=== PATIENT | female | born 2000 | race Caucasian/White ===

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

== ENCOUNTER 2020-10-06 20:45 | Emergency (ER) | payer MEDICAID ==
--- NOTE | 2020-10-06 22:40 | EDM.PDOC ---
ED HPI GENERAL MEDICAL PROBLEM - General Chief Complaint: Respiratory Problem Stated Complaint: TROUBLES BREATHING/CONFUSION/NAUSEA Time Seen by Provider: 10/06/20 21:11 Source of Information: Reports: Patient, RN Notes Reviewed - History of Present Illness INITIAL COMMENTS - FREE TEXT/NARRATIVE: Onset of cough, anisha., chills, Valladares myalgias, fatigue about 4 to 5 days ago. Sx getting worse. - Related Data Allergies Allergy/AdvReac Type Severity Reaction Status Date / Time tomato Allergy Other Verified 10/06/20 21:00 vinegar Allergy Other Uncoded 10/06/20 21:00 Home Meds: Home Meds Escitalopram [Lexapro] 20 mg PO DAILY 02/07/17 [History] LORazepam [Ativan] 0.5 mg PO ASDIRECTED PRN 02/07/17 [History] Past Medical History - Past Health History Medical/Surgical History: Denies Medical/Surgical History HEENT History: Reports: Impaired Vision Other HEENT History: wears glasses Cardiovascular History: Reports: None Respiratory History: Reports: None Gastrointestinal History: Reports: Chronic Constipation, GERD, GI Bleed, Hemorrhoids, PUD, Other (See Below) Other Gastrointestinal History: hx of reflux and vomiting from different foods and intolerance to most medications Genitourinary History: Reports: None 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 Musculoskeletal History: Reports: None Neurological History: Reports: None Psychiatric History: Reports: Anxiety, Depression, Panic Attack Endocrine/Metabolic History: Reports: None Hematologic History: Reports: None Immunologic History: Reports: None Oncologic (Cancer) History: Reports: None Dermatologic History: Reports: Eczema, Psoriasis - Infectious Disease History Infectious Disease History: Reports: None - Past Surgical History HEENT Surgical History: Reports: Adenoidectomy, Tonsillectomy, Other (See Below) Other HEENT Surgeries/Procedures: Tongue clipping GI Surgical History: Reports: EGD Other GI Surgeries/Procedures: endoscopy 01/2018 Social & Family History - Family History Family Medical History: No Pertinent Family History Endocrine/Metabolic: Reports: Diabetes, type II Oncologic: Reports: Brain, Cervix, Skin - Tobacco Use Tobacco Use Status *Q: Never Tobacco User Second Hand Smoke Exposure: Yes - Caffeine Use Caffeine Use: Reports: Soda, Tea - Recreational Drug Use Recreational Drug Use: No - Living Situation & Occupation Living situation: Reports: Single, with Family Occupation: Unemployed ED ROS GENERAL - Review of Systems Review Of Systems: See Below Constitutional: Reports: Chills. Denies: Fever HEENT: Reports: Rhinitis, Throat Pain Respiratory: Reports: Shortness of Breath, Cough Endocrine: Reports: Fatigue GI/Abdominal: Denies: Diarrhea, Nausea, Vomiting Musculoskeletal: Reports: Other (myalgias) Skin: Denies: Rash Neurological: Reports: Dizziness, Headache ED EXAM, GENERAL - Physical Exam Exam: See Below General Appearance: Alert, No Apparent Distress Throat/Mouth: Normal Inspection Head: Atraumatic Neck: Supple Respiratory/Chest: No Respiratory Distress, Lungs Clear, Normal Breath Sounds. No: Rhonchi, Wheezing Cardiovascular: Regular Rate, Rhythm GI/Abdominal: Non-Tender Neurological: Alert, Oriented, No Motor/Sensory Deficits Skin Exam: Warm, Dry, Normal Color Course - Vital Signs Last Recorded V/S: Last Vital Signs Temp 98.0 F 10/06/20 22:45 Pulse 86 10/06/20 22:45 Resp 18 10/06/20 22:45 BP 111/66 10/06/20 22:45 Pulse Ox 99 10/06/20 22:45 - Orders/Labs/Meds Orders: Active Orders 24 hr Category Date Time Status Chest 1V Frontal [CR] Stat Exams 10/06/20 21:18 Taken Labs: Laboratory Tests 10/06/20 Range/Units 21:16 SARS-CoV-2 RNA (KATY) Negative (NEGATIVE) - Re-Assessments/Exams Free Text/Narrative Re-Assessment/Exam: 10/06/20 23:54 CXR nl, covid neg Departure - Departure Time of Disposition: 22:38 Disposition: Home, Self-Care 01 Condition: Fair Clinical Impression: Viral URI with cough - Discharge Information Instructions: Viral Respiratory Infection, [id number] Referrals: Jesusita Harry PA-C [Primary Care Provider] - Forms: ED Department Discharge Additional Instructions: Rest, consider retest for covid if not much better within 2 to 3 days as expected. Follow up clinic as needed. Return to ED as needed. Sepsis Event Note (ED) - Evaluation Sepsis Screening Result: No Definite Risk - Focused Exam Vital Signs: Vital Signs Temp Pulse Resp BP Pulse Ox 10/06/20 22:45 98.0 F 86 18 111/66 99 10/06/20 21:00 99.1 F 85 16 114/73 100 - My Orders Last 24 Hours: My Active Orders 10/06/20 21:18 Chest 1V Frontal [CR] Stat - Assessment/Plan Last 24 Hours: My Active Orders 10/06/20 21:18 Chest 1V Frontal [CR] Stat
--- NOTE | 2020-10-07 07:25 | CR ---
Chest: Frontal view of the chest was obtained. Comparison: No prior chest imaging is available. Heart size and mediastinum are normal. Lungs are clear with no acute parenchymal change. Minimal scoliosis is noted. No acute osseous abnormality is seen. Impression: 1. Nothing acute is seen on frontal chest x-ray. Diagnostic code #1
== END 2020-10-06 22:45 | disposition home or self-care (01) ==
LOC: JD.ED 20:45
DX: J06.9 Acute upper respiratory infection, unspecified (principal); Z91.018 Allergy to other foods; Z77.22 Contact with and (suspected) exposure to environmental tobacco smoke (acute) (chronic); Z20.822 Contact with and (suspected) exposure to COVID-19
CPT/HCPCS: 71045; 71045-26; 99282; 99283-25; U0002

== ENCOUNTER 2020-12-09 13:48 | Emergency (ER) | payer MEDICAID, OTHER ==
[2020-12-09] MEDS ORDERED: Ondansetron 4 MG/2 ML SDV IVPUSH ONE (15:10)
[2020-12-09] MEDS ORDERED: Sodium Chloride 0.9% 10 ML Syringe FLUSH PRN (15:10)
[2020-12-09] MEDS ORDERED: Sodium Chloride 0.9% 1,000 ML IV SCH (15:15)
--- NOTE | 2020-12-09 15:18 | EDM.PDOC ---
ED HPI GENERAL MEDICAL PROBLEM - General Chief Complaint: Abdominal Pain Stated Complaint: GALLBLADDER\\DEHYDRATED? Time Seen by Provider: 12/09/20 14:56 Source of Information: Reports: Patient, RN Notes Reviewed History Limitations: Reports: No Limitations - History of Present Illness INITIAL COMMENTS - FREE TEXT/NARRATIVE: Patient is a 20-year-old female who presents to the ER for the evaluation of her upper abdominal discomfort with associated nausea and diarrhea. Patient notes that her family has an extensive history of bladder issues. States that her mother has had gallbladder issues, her grandmother has had gallbladder issues, and her uncle has had gallbladder issues. Patient states that since Tuesday, she has not been able to keep anything down for food or fluids much at all. She states that if she does keep food down, then she has diarrhea shortly after she eats anything. States she has not really been able to eat any sort of foods, fatty, sugary, otherwise without a lot of GI discomfort. They state that there was an area of "swelling" to the patient's mid abdomen, in which she took a lukewarm bath, and this seemed to help relieve the swelling in her abdomen. Patient is denying any fevers or chills, cough or shortness of breath. She has been try to take some medications for the pain management for her stomach however she is not been able to keep anything down due to the vomiting. Primary care provider is Jesusita Harry. Upper Abdomen Pain Score (Numeric/FACES): 10 - Related Data Allergies Allergy/AdvReac Type Severity Reaction Status Date / Time tomato Allergy Unknown Other Verified 12/09/20 16:05 acetic acid Allergy Other Verified 12/09/20 16:05 Home Meds: Home Meds Escitalopram [Lexapro] 20 mg PO DAILY 02/07/17 [History] LORazepam [Ativan] 0.5 mg PO ASDIRECTED PRN 02/07/17 [History] Ondansetron [Zofran ODT] 4 mg PO Q8H PRN #15 tab.dis 12/09/20 [Rx] Past Medical History HEENT History: Reports: Impaired Vision Other HEENT History: wears glasses Gastrointestinal History: Reports: Chronic Constipation, GERD, GI Bleed, Hemorrhoids, PUD, Other (See Below) Other Gastrointestinal History: hx of reflux and vomiting from different foods and intolerance to most medications;ulcers Psychiatric History: Reports: Anxiety, Depression, Panic Attack Dermatologic History: Reports: Eczema, Psoriasis - Past Surgical History HEENT Surgical History: Reports: Adenoidectomy, Tonsillectomy, Other (See Below) Other HEENT Surgeries/Procedures: Tongue clipping GI Surgical History: Reports: EGD Other GI Surgeries/Procedures: endoscopy 01/2018 Social & Family History - Family History Family Medical History: No Pertinent Family History Endocrine/Metabolic: Reports: Diabetes, type II Oncologic: Reports: Brain, Cervix, Skin - Tobacco Use Tobacco Use Status *Q: Never Tobacco User - Caffeine Use Caffeine Use: Reports: Soda, Tea - Recreational Drug Use Recreational Drug Use: No - Living Situation & Occupation Living situation: Reports: Single, with Family Occupation: Unemployed ED ROS GENERAL - Review of Systems Review Of Systems: Comprehensive ROS is negative, except as noted in HPI. ED EXAM, GI/ABD - Physical Exam Exam: See Below Exam Limited By: No Limitations General Appearance: Alert, WD/WN, No Apparent Distress Respiratory/Chest: No Respiratory Distress, Lungs Clear, Normal Breath Sounds, No Accessory Muscle Use, Chest Non-Tender Cardiovascular: Normal Peripheral Pulses, Regular Rate, Rhythm, No Edema GI/Abdominal Exam: Normal Bowel Sounds, Soft, No Distention, Tender (epigastrium and into RUQ, Mendez's sign positive.) Extremities: Normal Inspection, Normal Range of Motion, Normal Capillary Refill Neurological: Alert, Oriented, Normal Cognition, No Motor/Sensory Deficits Psychiatric: Normal Affect, Normal Mood Skin Exam: Warm, Dry, Intact, Normal Color, No Rash Course - Vital Signs Last Recorded V/S: Last Vital Signs Temp 100.4 F 12/09/20 14:31 Pulse 74 12/09/20 14:31 Resp 20 12/09/20 14:31 BP 111/66 12/09/20 14:31 Pulse Ox 99 12/09/20 14:31 - Orders/Labs/Meds Orders: Active Orders 24 hr Category Date Time Status Peripheral IV Care [RC] . DIRECTED Care 12/09/20 15:12 Ordered Abdomen Ltd [US] Stat Exams 12/09/20 15:10 Ordered Abdomen Pelvis w Cont [CT] Stat Exams 12/09/20 15:10 Ordered Sodium Chloride 0.9% [Normal Saline] 1,000 ml Med 12/09/20 15:15 Ordered IV ASDIRECTED Sodium Chloride 0.9% [Saline Flush] Med 12/09/20 15:10 Ordered 10 ml FLUSH ASDIRECTED PRN Peripheral IV Insertion Adult [OM.PC] Stat Oth 12/09/20 15:10 Ordered Medication Orders Sodium Chloride (Normal Saline) 1,000 mls @ 999 mls/hr IV ASDIRECTED ADAMA Last Admin: 12/09/20 15:34 Dose: 999 mls/hr Documented by: ANITA Sodium Chloride (Sodium Chloride 0.9% 10 Ml Syringe) 10 ml FLUSH ASDIRECTED PRN PRN Reason: Keep Vein Open Last Admin: 12/09/20 15:34 Dose: 10 ml Documented by: ANITA Labs: Laboratory Tests 12/09/20 12/09/20 12/09/20 Range/Units 14:55 15:00 15:13 WBC (3.98-10.04) K/mm3 RBC (3.98-5.22) M/mm3 Hgb (11.2-15.7) gm/dl Hct (34.1-44.9) % MCV (79.4-94.8) fl MCH (25.6-32.2) pg MCHC (32.2-35.5) g/dl RDW Std Deviation (36.4-46.3) fL Plt Count (182-369) K/mm3 MPV (9.4-12.3) fl Neut % (Auto) (34.0-71.1) % Lymph % (Auto) (19.3-51.7) % [place] % (Auto) (4.7-12.5) % Eos % (Auto) (0.7-5.8) Baso % (Auto) (0.1-1.2) % Neut # (Auto) (1.56-6.13) K/mm3 Lymph # (Auto) (1.18-3.74) K/mm3 [place] # (Auto) (0.24-0.36) K/mm3 Eos # (Auto) (0.04-0.36) K/mm3 Baso # (Auto) (0.01-0.08) K/mm3 Sodium (136-145) mEq/L Potassium (3.5-5.1) mEq/L Chloride (98-107) mEq/L Carbon Dioxide (21-32) mEq/L Anion Gap (5-15) BUN (7-18) mg/dL Creatinine (0.55-1.02) mg/dL Est Cr Clr Drug Dosing mL/min Estimated GFR (MDRD) (>60) mL/min BUN/Creatinine Ratio (14-18) Glucose (70-99) mg/dL Calcium (8.5-10.1) mg/dL Total Bilirubin (0.2-1.0) mg/dL GGT (5-55) U/L AST (15-37) U/L ALT (14-59) U/L Alkaline Phosphatase (46-116) U/L C-Reactive Protein (<1.0) mg/dL Total Protein (6.4-8.2) g/dl Albumin (3.4-5.0) g/dl Globulin gm/dL Albumin/Globulin Ratio (1-2) Lipase (73-393) U/L Urine Color Yellow (Yellow) Urine Appearance Clear (Clear) Urine pH 7.5 (5.0-8.0) Ur Specific [place] 1.020 (1.005-1.030) Urine Protein Negative (Negative) Urine Glucose (UA) Negative (Negative) Urine Ketones Negative (Negative) Urine Occult Blood Negative (Negative) Urine Nitrite Negative (Negative) Urine Bilirubin Negative (Negative) Urine Urobilinogen 0.2 (0.2-1.0) Ur Leukocyte Esterase Negative (Negative) Urine RBC 0-5 (0-5) /hpf Urine WBC 0-5 (0-5) /hpf Ur Squamous Epith Cells 5-10 H (0-5) /hpf Urine Bacteria Few (FEW) /hpf Urine Mucus Few (FEW) /hpf Urine HCG, Qual Negative (NEGATIVE) Influenza Type A RNA Negative (NEGATIVE) Influenza Type B RNA Negative (NEGATIVE) SARS-CoV-2 RNA (KATY) Negative (NEGATIVE) 12/09/20 12/09/20 Range/Units 15:30 15:30 WBC 5.38 (3.98-10.04) K/mm3 RBC 4.55 (3.98-5.22) M/mm3 Hgb 13.9 (11.2-15.7) gm/dl Hct 40.9 (34.1-44.9) % MCV 89.9 (79.4-94.8) fl MCH 30.5 (25.6-32.2) pg MCHC 34.0 (32.2-35.5) g/dl RDW Std Deviation 42.0 (36.4-46.3) fL Plt Count 458 H (182-369) K/mm3 MPV 9.1 L (9.4-12.3) fl Neut % (Auto) 57.8 (34.0-71.1) % Lymph % (Auto) 26.8 (19.3-51.7) % [place] % (Auto) 10.4 (4.7-12.5) % Eos % (Auto) 3.5 (0.7-5.8) Baso % (Auto) 1.3 H (0.1-1.2) % Neut # (Auto) 3.11 (1.56-6.13) K/mm3 Lymph # (Auto) 1.44 (1.18-3.74) K/mm3 [place] # (Auto) 0.56 H (0.24-0.36) K/mm3 Eos # (Auto) 0.19 (0.04-0.36) K/mm3 Baso # (Auto) 0.07 (0.01-0.08) K/mm3 Sodium 143 (136-145) mEq/L Potassium 3.7 (3.5-5.1) mEq/L Chloride 105 (98-107) mEq/L Carbon Dioxide 28 (21-32) mEq/L Anion Gap 13.7 (5-15) BUN 6 L (7-18) mg/dL Creatinine 0.7 (0.55-1.02) mg/dL Est Cr Clr Drug Dosing 101.39 mL/min Estimated GFR (MDRD) > 60 (>60) mL/min BUN/Creatinine Ratio 8.6 L (14-18) Glucose 99 (70-99) mg/dL Calcium 8.9 (8.5-10.1) mg/dL Total Bilirubin 0.7 (0.2-1.0) mg/dL GGT 14 (5-55) U/L AST 19 (15-37) U/L ALT 30 (14-59) U/L Alkaline Phosphatase 81 (46-116) U/L C-Reactive Protein <0.2 (<1.0) mg/dL Total Protein 7.1 (6.4-8.2) g/dl Albumin 4.1 (3.4-5.0) g/dl Globulin 3.0 gm/dL Albumin/Globulin Ratio 1.4 (1-2) Lipase 78 (73-393) U/L Urine Color (Yellow) Urine Appearance (Clear) Urine pH (5.0-8.0) Ur Specific [place] (1.005-1.030) Urine Protein (Negative) Urine Glucose (UA) (Negative) Urine Ketones (Negative) Urine Occult Blood (Negative) Urine Nitrite (Negative) Urine Bilirubin (Negative) Urine Urobilinogen (0.2-1.0) Ur Leukocyte Esterase (Negative) Urine RBC (0-5) /hpf Urine WBC (0-5) /hpf Ur Squamous Epith Cells (0-5) /hpf Urine Bacteria (FEW) /hpf Urine Mucus (FEW) /hpf Urine HCG, Qual (NEGATIVE) Influenza Type A RNA (NEGATIVE) Influenza Type B RNA (NEGATIVE) SARS-CoV-2 RNA (KATY) (NEGATIVE) Meds: Medications Generic Name Dose Route Start Last Admin Trade Name Quentin PRN Reason Stop Dose Admin Sodium Chloride 1,000 mls @ 999 mls/hr 12/09/20 15:15 12/09/20 15:34 Normal Saline IV 999 mls/hr ASDIRECTED ADAMA Administration Sodium Chloride 10 ml 12/09/20 15:10 12/09/20 15:34 Sodium Chloride 0.9% 10 Ml Syringe FLUSH 10 ml ASDIRECTED PRN Administration Keep Vein Open Discontinued Medications Generic Name Dose Route Start Last Admin Trade Name Quentin PRN Reason Stop Dose Admin Iopamidol 100 ml 12/09/20 15:56 12/09/20 17:17 Iopamidol 612 Mg/Ml 100 Ml Bottle IVPUSH 12/09/20 15:57 100 ml ONETIME ONE Administration Ondansetron HCl 4 mg 12/09/20 15:10 12/09/20 15:35 Ondansetron 4 Mg/2 Ml Sdv IVPUSH 12/09/20 15:11 4 mg ONETIME ONE Administration Sodium Chloride 10 ml 12/09/20 15:56 12/09/20 17:17 Sodium Chloride 0.9% 10 Ml Syringe FLUSH 12/09/20 15:57 10 ml ONETIME ONE Administration - Re-Assessments/Exams Free Text/Narrative Re-Assessment/Exam: 12/09/20 15:17 Patient presents to the ER for evaluation of her upper GI discomfort, with associated nausea and vomiting. Quick review of the patient's vital signs do demonstrate that she has a fever of 100.4 F. Weight times have been somewhat delayed in the ER today, so she has been able to normalize to room temperature before this was taken for about an hour. We will go ahead and get IV started get her some nausea meds some fluids, get some basic labs, abdomen pelvis CT with a gallbladder ultrasound as well for ongoing management. Patient will also be screened for COVID-19. 12/09/20 17:16 Patient's labs are all unremarkable. The patient's abdomen ultrasound has been read, with no acute findings with a normal right upper quadrant abdomen in appearance. Gallbladder was found to be normal with no gallstones gallbladder wall was not thickened with some negative sonographic Mendez sign. Common bile duct is normal measuring [address] is still pending. 12/09/20 18:[address] also demonstrates no sign of acute abnormalities. There is no evidence of appendicitis, no other evidence of any sort of cholecystitis or otherwise. Patient could have a viral gastroenteritis that is causing her symptoms. We will go ahead and have her try to use some loperamide, and I can give her some antinausea medications and have her follow-up with her primary care provider in a few days time if things do not seem to be getting much better. Departure - Departure Time of Disposition: 18:12 Disposition: Home, Self-Care 01 Condition: Good Clinical Impression: Gastroenteritis - Discharge Information *PRESCRIPTION DRUG MONITORING PROGRAM REVIEWED*: No *COPY OF PRESCRIPTION DRUG MONITORING REPORT IN PATIENT ZONIA: No Instructions: Viral Gastroenteritis, Adult, [id number] Referrals: Jesusita Harry PA-C [Primary Care Provider] - Forms: ED Department Discharge Additional Instructions: You have been evaluated in the ED for nausea/vomiting/diarrhea. It is likely that this is caused from a viral gastroenteritis. Your laboratory evaluation done at today's visit, your gallbladder ultrasound and abdomen pelvis CT at today's visit are all unremarkable for any acute findings regarding any sort of gallbladder etiology that would have caused your right upper quadrant abdominal pain. It is likely that you still are suffering from some ulcer issues, and I would have you follow-up with your regular care provider for ongoing management. You have received IV fluid in the ED to help with the dehydration from the vomiting and diarrhea. Over the next 24-48 hours please try to limit diet to clear liquids and advance as tolerated to a bland diet to alleviate symptoms of nausea/vomiting/diarrhea. Please use the Zofran every 8 hours as needed for nausea. This medication was electronically sent to the [place] pharmacy located in the [facility] grocery store. Please return to the ED if your symptoms should change or worsen. Sepsis Event Note (ED) - Focused Exam Vital Signs: Vital Signs Temp Pulse Resp BP Pulse Ox 12/09/20 14:31 100.4 F 74 20 111/66 99 - My Orders Last 24 Hours: My Active Orders 12/09/20 15:10 Abdomen Ltd [US] Stat Abdomen Pelvis w Cont [CT] Stat Sodium Chloride 0.9% [Saline Flush] 10 ml FLUSH ASDIRECTED PRN Peripheral IV Insertion Adult [OM.PC] Stat 12/09/20 15:12 Peripheral IV Care [RC] . DIRECTED 12/09/20 15:15 Sodium Chloride 0.9% [Normal Saline] 1,000 ml IV ASDIRECTED - Assessment/Plan Last 24 Hours: My Active Orders 12/09/20 15:10 Abdomen Ltd [US] Stat Abdomen Pelvis w Cont [CT] Stat Sodium Chloride 0.9% [Saline Flush] 10 ml FLUSH ASDIRECTED PRN Peripheral IV Insertion Adult [OM.PC] Stat 12/09/20 15:12 Peripheral IV Care [RC] . DIRECTED 12/09/20 15:15 Sodium Chloride 0.9% [Normal Saline] 1,000 ml IV ASDIRECTED
[2020-12-09] MEDS ORDERED: Sodium Chloride 0.9% 10 ML Syringe FLUSH ONE (15:56)
[2020-12-09] MEDS ORDERED: Iopamidol 612 MG/ML 100 ML Bottle IVPUSH ONE (15:56)
[2020-12-09 16:39] LABS: CORONAVIRUS COVID-19 NAA NEGATIVE (NEGATIVE)
--- NOTE | 2020-12-10 08:02 | US ---
Limited abdominal ultrasound: Multiple real-time images of the upper right abdomen were obtained. Comparison: No prior abdominal ultrasound is available. Liver shows no focal abnormality. Pancreas is within normal limits. Gallbladder contains no shadowing gallstones. No gallbladder wall thickening or biliary duct dilatation is seen. Right kidney shows no hydronephrosis or mass. Right kidney has a length of 9.9 cm. Main portal vein shows normal hepatopedal flow. Impression: 1. No abnormality is identified on right upper quadrant abdominal ultrasound. Diagnostic code #1 I agree with preliminary report from [facility], finalized on 12/09/20, 6:03 PM CDT, code 1
--- NOTE | 2020-12-10 08:08 | CT ---
CT abdomen and pelvis Technique: Multiple axial sections were obtained from above the dome of the diaphragm inferiorly through the pubic symphysis. Intravenous contrast was utilized. No oral contrast has been given. Delayed images were also obtained through the bladder. Reconstructed coronal and sagittal images were obtained. Comparison: Prior abdominal ultrasound performed earlier on the same day (3:44 PM). Findings: Visualized lung bases show nothing acute. Liver contains no focal parenchymal abnormality. Spleen size is normal. Adrenal glands show no nodule. Pancreas is within normal limits. Gallbladder contains no calcified gallstones. Kidneys show symmetric contrast enhancement with no hydronephrosis or mass being seen. Abdominal aorta shows no aneurysm. No retroperitoneal adenopathy or mesenteric abnormalities are seen. No pelvic mass or adenopathy is noted. No free fluid or inflammatory change is seen. Delayed images show contrast within the distal ureters and within the bladder. Appendix is seen which is normal in size. Bone window settings were reviewed which appear within normal limits for the patient's age. Impression: 1. Nothing acute is appreciated on CT study of the abdomen and pelvis. Diagnostic code #1 I agree with preliminary report from [facility], finalized on 12/09/20, 6:55 PM CDT, code 1
== END 2020-12-09 18:25 | disposition home or self-care (01) ==
LOC: JD.ED 13:48
DX: K52.9 Noninfective gastroenteritis and colitis, unspecified (principal); Z88.8 Allergy status to other drugs, medicaments and biological substances; Z91.018 Allergy to other foods; Z20.822 Contact with and (suspected) exposure to COVID-19
CPT/HCPCS: 0240U; 36415; 74177; 76705; 80053; 81001; 81025; 82977; 83690; 85025; 86140; 96361; 96374; 99284; J2405; J7030; Q9967

== ENCOUNTER 2021-03-06 23:48 | Emergency (ER) | payer MEDICAID ==
--- NOTE | 2021-03-07 00:38 | EDM.PDOC ---
ED HPI GENERAL MEDICAL PROBLEM - General Chief Complaint: Gastrointestinal Problem Stated Complaint: VOMITING BLOOD AND BLOOD IN STOOLS Time Seen by Provider: 03/07/21 00:12 Source of Information: Reports: Patient, Family (Mother) History Limitations: Reports: No Limitations - History of Present Illness INITIAL COMMENTS - FREE TEXT/NARRATIVE: Ms. Cantu is a very pleasant 20-year-old woman who now presents the ED stating that she has had hematemesis along with blood/blood clots mixed with normal- appearing stool, without diarrhea, since this past , 03/05/2021. She has had some upper abdominal pain, although no rectal pain. She took some TUMS, but no other medications to address her symptoms. She denies eating any red foods or taking Pepto-Bismol. She states that she has been eating only bread. The patient reports a similar symptoms in 2018. She states that she underwent an EGD and was diagnosed with either gastric or duodenal ulcers. She was treated with an antibiotic and an antacid for 5 days, but had to stop early due to nausea and vomiting. At triage this morning, the patient was found to be hemodynamically stable, afebrile, saturating 98% on room air. She appears to be comfortable, in no acute distress. Prior to , the patient denies having a recent fever, chills, sore throat, ear pain, nasal or sinus congestion, cough, dyspnea, chest pain, palpitations, nausea, vomiting, constipation, diarrhea, abdominal pain, urinary symptoms, recent weight gain or weight loss, recent bloody bowel movements or black bowel movements, recent joint aches, headaches, or rashes. The patient's PCP is RAYMOND Jimenez. She has not received a COVID vaccination, nor an influenza vaccination this season. Abdomen Pain Score (Numeric/FACES): 9 - Related Data Allergies Allergy/AdvReac Type Severity Reaction Status Date / Time tomato Allergy Unknown Other Verified 03/07/21 00:04 acetic acid Allergy Other Verified 03/07/21 00:04 Home Meds: Home Meds Escitalopram [Lexapro] 10 mg PO DAILY 02/07/17 [History] Ondansetron [Zofran ODT] 4 mg PO Q8H PRN #15 tab.dis 12/09/20 [Rx] Ondansetron [Zofran ODT] 1 tab PO Q8H PRN #10 tab.dis 03/07/21 [Rx] Past Medical History HEENT History: Reports: Impaired Vision (wears glasses) Gastrointestinal History: Reports: PUD Psychiatric History: Reports: Anxiety, Depression, Panic Attack, Other (See Below) (Agoraphobia) - Past Surgical History HEENT Surgical History: Reports: Adenoidectomy, Oral Surgery (dental extractions), Tonsillectomy, Other (See Below) (Lower frenotomy) GI Surgical History: Reports: EGD (x Jan 2018) Social & Family History - Tobacco Use Tobacco Use Status *Q: Never Tobacco User - Caffeine Use Caffeine Use: Reports: None - Alcohol Use Alcohol Use History: No - Recreational Drug Use Recreational Drug Use: No - Living Situation & Occupation Living situation: Reports: Single, with Family Occupation: Unemployed ED ROS GENERAL - Review of Systems Review Of Systems: Comprehensive ROS is negative, except as noted in HPI. ED EXAM, GI/ABD - Physical Exam Exam: See Below Exam Limited By: No Limitations General Appearance: Alert, WD/WN, No Apparent Distress Eyes: Bilateral: Normal Appearance, EOMI Ears: Normal External Exam, Hearing Grossly Normal Nose: Normal Inspection Throat/Mouth: Normal Inspection, Normal Lips, Normal Voice, No Airway Compromise Head: Atraumatic, Normocephalic Neck: Normal Inspection, Full Range of Motion Respiratory/Chest: No Respiratory Distress, Lungs Clear, Normal Breath Sounds, No Accessory Muscle Use, Chest Non-Tender Cardiovascular: Normal Peripheral Pulses, Regular Rate, Rhythm, No Edema, No Gallop, No JVD, No Murmur, No Rub GI/Abdominal Exam: Normal Bowel Sounds, Soft, No Organomegaly, No Distention, No Abnormal Bruit, No Mass, Tender (generalized abdominal tenderness, greater on the left than the right) Rectal (Female) Exam: Normal Exam, Normal Rectal Tone, Heme - Stool. No: Hemorrhoids, Tenderness Back Exam: Normal Inspection, Full Range of Motion, NT Extremities: Normal Inspection, Normal Range of Motion, No Pedal Edema, Normal Capillary Refill Neurological: Alert, Oriented, Normal Cognition, No Motor/Sensory Deficits Psychiatric: Normal Affect Skin Exam: Warm, Dry, Intact, Normal Color, No Rash Course - Vital Signs Last Recorded V/S: Last Vital Signs Temp 37.2 C 03/06/21 23:59 Pulse 81 03/06/21 23:59 Resp 18 03/06/21 23:59 BP 123/83 03/06/21 23:59 Pulse Ox 98 03/06/21 23:59 Orthostatic Blood Pressure [ 115/79 Standing] Orthostatic Blood Pressure [ 106/70 Supine] - Orders/Labs/Meds Orders: Active Orders 24 hr Category Date Time Status Hemoccult [Fecal Occult Blood Collection] [RC] Care 03/07/21 00:36 Active ASDIRECTED Orthostatic Vital Signs [RC] STAT Care 03/07/21 00:32 Active Labs: Laboratory Tests 03/07/21 Range/Units 00:45 Hgb 13.0 (11.2-15.7) gm/dl Hct 38.1 (34.1-44.9) % - Re-Assessments/Exams Free Text/Narrative Re-Assessment/Exam: 03/07/21 00:32 As above, the patient was heme-negative on rectal exam. I have ordered orthostatics and an H/H. 03/07/21 00:49 The patient is not orthostatic. 03/07/21 01:12 The patient's H/H is within normal limits at 13.0/30.1. 03/07/21 01:15 Test results discussed with the patient and her mother. As above, today's work- up is grossly unremarkable. I offered to get her a dose of Zofran ODT, which she declined, which she agreed to my submitting a prescription for Zofran to the pharmacy of her choice. I explained that to find out the cause of her hematemesis, she would need to undergo another EGD. She prefers to follow-up with Ms. Harry to get a referral, as opposed to my referring her to our surgeon on-call. Departure - Departure Time of Disposition: 01:16 Disposition: Home, Self-Care 01 Condition: Good Clinical Impression: Hematemesis - Discharge Information *PRESCRIPTION DRUG MONITORING PROGRAM REVIEWED*: Not Applicable *COPY OF PRESCRIPTION DRUG MONITORING REPORT IN PATIENT ZONIA: Not Applicable Referrals: Jesusita Harry PA-C [Physician Home Care Liaison] - Forms: ED Department Discharge Additional Instructions: You were seen in the emergency room for vomiting blood with blood/clots seen in your stool. On examination, no blood was found on rectal exam. Work-up in the ER included positional blood pressure checks and a hemoglobin/hematocrit, both of which were normal. You are not intravascularly depleted, and you are not anemic. A prescription for the anti-nausea medicine Zofran ODT has been sent to the [place] pharmacy [place], located in the [facility] grocery store. You may dissolve 1 tablet of Zofran ODT on your tongue up to every 8 hours, as needed for nausea/vomiting. Stay adequately hydrated. It does not really matter what type of fluid you drink, but you should probably avoid red fluids. As discussed, in order to find out the cause of your throwing up blood, an EGD (scope of your stomach) is needed. Please follow-up with your PCP, RAYMOND Jimenez, for referral to a Surgeon to arrange for an EGD. Sepsis Event Note (ED) - Evaluation Sepsis Screening Result: No Definite Risk - Focused Exam Vital Signs: Vital Signs Temp Pulse Resp BP Pulse Ox 03/06/21 23:59 37.2 C 81 18 123/83 98 - My Orders Last 24 Hours: My Active Orders 03/07/21 00:32 Orthostatic Vital Signs [RC] STAT 03/07/21 00:36 Hemoccult [Fecal Occult Blood Collection] [RC] ASDIRECTED - Assessment/Plan Last 24 Hours: My Active Orders 03/07/21 00:32 Orthostatic Vital Signs [RC] STAT 03/07/21 00:36 Hemoccult [Fecal Occult Blood Collection] [RC] ASDIRECTED
== END 2021-03-07 01:25 | disposition home or self-care (01) ==
LOC: JD.ED 23:48
DX: K92.0 Hematemesis (principal); Z91.018 Allergy to other foods; Z88.8 Allergy status to other drugs, medicaments and biological substances
CPT/HCPCS: 36415; 85014; 85018; 99283; 99284

== ENCOUNTER 2021-04-09 10:14 | Day surgery (SDC) | payer MEDICAID ==
[~2021-04-09 10:14] MED LIST: Lactated Ringers 1,000 ML IV SCH; Lidocaine 1%/Sod Bicarbonate in NS 8.4% 1 ML Syringe IDERM PRN; Sodium Chloride 0.9% 10 ML Syringe FLUSH PRN; Sodium Chloride 0.9% 10 ML Syringe FLUSH SCH
[2021-04-09] MEDS ORDERED: Scopolamine 1.5 MG Transdermal Patch TRDERM PRN (10:50)
[2021-04-09] MEDS ORDERED: Lidocaine 1% 4 ML ONE (11:16)
[2021-04-09] MEDS ORDERED: Propofol 200 MG/20 ML SDV ONE (11:17)
[2021-04-09] MEDS ORDERED: Ondansetron 4 MG/2 ML SDV ONE (11:18)
== END 2021-04-09 12:21 | disposition home or self-care (01) ==
LOC: JD.SDS 10:14
PROVIDERS: ATTEND Surgery
DX: K29.50 Unspecified chronic gastritis without bleeding (principal); K44.9 Diaphragmatic hernia without obstruction or gangrene; K21.00 Gastro-esophageal reflux disease with esophagitis, without bleeding; F41.9 Anxiety disorder, unspecified; F32.A Depression, unspecified; Z91.018 Allergy to other foods; Z79.899 Other long term (current) drug therapy; Z98.890 Other specified postprocedural states; Z91.048 Other nonmedicinal substance allergy status
CPT/HCPCS: 43239; A9270; J2405; J2704; J7120

== ENCOUNTER 2021-08-15 16:16 | Emergency (ER) | payer MEDICAID ==
[2021-08-15] MEDS ORDERED: Sodium Chloride 0.9% 10 ML Syringe FLUSH PRN (17:57)
[2021-08-15 19:39] LABS: CORONAVIRUS COVID-19 NAA NEGATIVE (NEGATIVE)
== END 2021-08-15 20:10 | disposition home or self-care (01) ==
LOC: JD.ED 16:16
DX: A05.9 Bacterial foodborne intoxication, unspecified (principal); N30.00 Acute cystitis without hematuria; Z28.310 Unvaccinated for COVID-19; Z91.018 Allergy to other foods; Z91.09 Other allergy status, other than to drugs and biological substances; Z91.048 Other nonmedicinal substance allergy status; Z86.16 Personal history of COVID-19; Z20.822 Contact with and (suspected) exposure to COVID-19
CPT/HCPCS: 0240U; 36415; 80053; 81001; 85025; 86140; 87086; 99284

== ENCOUNTER 2021-10-31 23:48 | Emergency (ER) | payer MEDICAID ==
[2021-11-01] MEDS ORDERED: Sodium Chloride 0.9% 1,000 ML IV SCH (03:30)
[2021-11-01] MEDS ORDERED: Iopamidol 612 MG/ML 100 ML Bottle IVPUSH ONE (03:50)
== END 2021-11-01 05:45 | disposition home or self-care (01) ==
LOC: JD.ED 23:48
DX: R10.12 Left upper quadrant pain (principal); R10.32 Left lower quadrant pain; Z91.018 Allergy to other foods; Z91.048 Other nonmedicinal substance allergy status; Z79.899 Other long term (current) drug therapy; Z86.16 Personal history of COVID-19
CPT/HCPCS: 36415; 74177; 76705; 80053; 83690; 83735; 84703; 85007; 85027; 96360; 96361; 99284; J7030; Q9967

== ENCOUNTER 2022-04-02 06:42 | Emergency (ER) | payer MEDICAID, OTHER ==
[2022-04-02] MEDS ORDERED: Ondansetron 4 MG/2 ML SDV IVPUSH ONE (07:22)
[2022-04-02] MEDS ORDERED: Sodium Chloride 0.9% 10 ML Syringe FLUSH PRN (07:22)
[2022-04-02] MEDS ORDERED: Sodium Chloride 0.9% 1,000 ML IV STA (07:22)
[2022-04-02 08:42] LABS: CORONAVIRUS COVID-19 NAA NEGATIVE (NEGATIVE)
== END 2022-04-02 09:45 | disposition home or self-care (01) ==
LOC: JD.ED 06:42
DX: J04.0 Acute laryngitis (principal); K21.9 Gastro-esophageal reflux disease without esophagitis; Z86.16 Personal history of COVID-19; Z91.040 Latex allergy status; Z91.09 Other allergy status, other than to drugs and biological substances; Z91.048 Other nonmedicinal substance allergy status; Z20.822 Contact with and (suspected) exposure to COVID-19
CPT/HCPCS: 0241U; 36415; 80053; 81001; 83690; 84703; 85025; 87086; 87651; 96361; 96374; 99284; J2405; J3490; J7030; 99283

== ENCOUNTER 2022-08-07 15:04 | Emergency (ER) | payer MEDICAID | END 2022-08-07 16:44 | disposition home or self-care (01) | LOC: JD.ED 15:04 | DX: J03.80 Acute tonsillitis due to other specified organisms (principal); B97.89 Other viral agents as the cause of diseases classified elsewhere; Z86.16 Personal history of COVID-19; Z91.018 Allergy to other foods; Z88.8 Allergy status to other drugs, medicaments and biological substances; Z91.040 Latex allergy status; Z91.048 Other nonmedicinal substance allergy status | CPT/HCPCS: 87651-QW; 99283 ==

== ENCOUNTER 2025-01-23 13:58 | Emergency (ER) | payer BC | END 2025-01-23 14:34 | disposition home or self-care (01) | LOC: JD.ED 13:58 | DX: L08.9 Local infection of the skin and subcutaneous tissue, unspecified (principal); L81.8 Other specified disorders of pigmentation; L03.123 Acute lymphangitis of right upper limb; Z91.018 Allergy to other foods; Z91.048 Other nonmedicinal substance allergy status; Z91.040 Latex allergy status; Z79.899 Other long term (current) drug therapy; Z86.16 Personal history of COVID-19 | CPT/HCPCS: 99283 ==